=== PATIENT | female | born 1950 | race Hispanic/Latino ===

== ENCOUNTER → 2016-08-07 | Outpatient (CLI) | payer OTHER | LOC: MMPC 11:11 | PROVIDERS: ATTEND Surgery | DX: K64.5 Perianal venous thrombosis (principal) | CPT/HCPCS: 99212; G0463 ==

== ENCOUNTER → 2016-11-08 | Outpatient (CLI) | payer OTHER ==
--- NOTE | 2016-11-08 08:23 | DI ---
PA /LATERAL CHEST X-RAY, 11/08/2016 8:04 AM : Clinical History: Shortness of breath Previous Exam: None at this facility. There is no acute soft tissue or bony abnormality. Heart size is normal. Lungs are clear. Mediastinal structures are normal. There are no pulmonary nodules. IMPRESSION: Normal chest x-ray.
--- NOTE | 2016-11-08 08:59 | PE ---
[facility] Interpretive Statements [email or web address]
== END ==
LOC: RT 07:53
PROVIDERS: ATTEND Physician Assistant Medical
DX: R06.02 Shortness of breath (principal); R05 Cough
CPT/HCPCS: 71020; 94060

== ENCOUNTER → 2016-12-18 | Outpatient (CLI) | payer OTHER ==
[2016-12-18 13:04] LABS: BASOPHILS # (AUTO) 0.06 10*3/UL; BASOPHILS % (AUTO) 0.8 % (0-1); EOSINOPHILS # (AUTO) 0.07 10*3/UL; HEMATOCRIT 40.6 % (37.0-47.0); HEMOGLOBIN 13.9 g/dL (12.0-16.0); LYMPHOCYTES # (AUTO) 3.24 10*3/uL; MEAN CORPUSCULAR HEMOGLOBIN 29.4 PG (27-31); MEAN CORPUSCULAR HGB CONC 34.2 g/dL (33-37); MEAN CORPUSCULAR VOLUME 85.8 FL (81-99); MEAN PLATELET VOLUME 10.7 FL (7.4-12.2); MONOCYTES # (AUTO) 0.54 10*3/UL (0.3-0.8); MONOCYTES % (AUTO) 7.6 % (5-15); RED BLOOD COUNT 4.73 10^6/uL (4.20-5.40)
[2016-12-18 13:24] LABS: BLOOD UREA NITROGEN 16 mg/dL (7-22); BUN/CREATININE RATIO 26.66 (6-20); CALCIUM 9.5 mg/dL (8.7-10.7); EST GLOMERULAR FILTRATION > 60 (>60 ml/min/1.73m(2)); LIPASE 118 IU/L (23-300); SERUM ALBUMIN 4.4 g/dL (3.5-4.8)
[2016-12-18 13:25] LABS: PLATELET MORPHOLOGY COMMENT NORMAL MORPHOLOGY (NORM); RBC MORPHOLOGY COMMENT NORMAL MORPHOLOGY (NORM); WBC MORPHOLOGY COMMENT NORMAL MORPHOLOGY (NORM)
--- NOTE | 2016-12-19 00:40 | DI ---
CT ABD W/CN AND PELVIS W/CN,12/18/2016 2:04 PM: Clinical History: Abdominal pain and reflux. Previous Exam: January 30, 2016 Findings: Multiple helically acquired CT images are obtained through the abdomen and pelvis following intraveno us administration of contrast. Oral contrast was also administered. The lung bases are clear. There is stable fatty infiltration of the liver. Age and is status post cholecystectomy. The adrenals and kidneys are unremarkable. The spleen, pancreas, adrenals and kidneys are unremarkable. There is no mesenteric nor retroperitoneal lymphadenopathy. There is some thickening of the ascending colon which is not well evaluated on this exam. There is no evidence of acute appendicitis. Impression: 1. Mild thickening of the ascending colon. Consider colonoscopy for further evaluation.
== END ==
LOC: LAB 12:37
PROVIDERS: ATTEND Internal Medicine Gastroenterology
DX: R10.13 Epigastric pain (principal); K21.9 Gastro-esophageal reflux disease without esophagitis; K31.84 Gastroparesis; K59.00 Constipation, unspecified; I10 Essential (primary) hypertension; R10.813 Right lower quadrant abdominal tenderness; R07.81 Pleurodynia
CPT/HCPCS: 36415; 74177; 80053; 82150; 83690; 85025

== ENCOUNTER 2017-01-01 17:22 | Emergency (ER) | payer OTHER ==
[2017-01-01] MEDS ORDERED: MORPHINE SULFATE 4 MG/1 ML IVP ONE (18:01)
[2017-01-01] MEDS ORDERED: Sodium Chloride 0.9% 1,000 ML PRIMARY IV ONE (18:01)
[2017-01-01] MEDS ORDERED: ONDANSETRON 4 MG/2 ML VIAL IVP ONE (18:01)
--- NOTE | 2017-01-01 18:03 | PDOC ---
Abdomen/Flank HPI - General Chief Complaint: Abdomen Pain Stated Complaint: ABDOMINAL PAIN/RECTAL PAIN AND BLEEDING Date Seen by Provider: 01/01/17 Time Seen by Provider: 18:02 Source: POSITIVE: Patient Exam Limitations: POSITIVE: No limitations Nurse's Notes Reviewed & Considered: Yes - History of Present Illness Initial Comments: 66-year-old female comes in today with complaints of perirectal pain and rectal bleeding. Has a history of perirectal pain and hemorrhoids. She has been extensively examined including colonoscopy, EGD, and CT scans. All of which are equivocal. She describes her pain as crampy and severe. She has a sensation of needing to defecate, goes to the bathroom, and after a bowel movement continues to feel the need to defecate. She subsequently has no further stool. She denies any fever chills or sweats, no nausea vomiting or diarrhea, no hematuria or dysuria, no headache, no chest pain or shortness of breath, no cough. Body Location Affected: REPORTS: Abdomen, Genitalia Timing: REPORTS: Constant Duration: Unknown Severity: Severe Quality: REPORTS: "Pain", Pressure Abdominal Pain Onset Location: REPORTS: RLQ, LLQ, Suprapubic, Other (perineum) Abdominal Pain Radiation: REPORTS: Groin Context: REPORTS: Lifting Modifying Factors: improves with: Nothing Associated Symptoms: REPORTS: Constipation, Diarrhea Similar Symptoms Previously: Yes Recent Care Received: REPORTS: Recently Seen, Treated by MD Any Prior Injuries Related to Current Complaint?: No - Patient Home Medications Home Medications: Home Medications Hydrocortisone Acetate [Proctocort] 30 mg RECTAL BID #30 supp 07/25/16 Hydrocortisone [Proctosol-Hc] 28.35 gm RECTAL BID tube 08/07/16 Polyethylene Glycol 3350 [Miralax] 17 gm PO DAILY 08/07/16 Verapamil HCl [Verapamil Er Pm] 100 mg PO DAILY cap 11/06/16 Albuterol Sulfate [Ventolin Hfa] 2 puff INH Q4-6H #1 inh 11/08/16 Dexlansoprazole [Dexilant] 60 mg PO DAILY 01/01/17 - Patient Allergies Allergies/Adverse Reactions: Allergies Allergy/AdvReac Type Severity Reaction Status Date / Time codeine Allergy Intermediate ITCHING Verified 01/01/17 17:39 mannitol [From Reclast] AdvReac Severe muscle Verified 01/01/17 17:39 pain severe headache n/v water for injection,sterile AdvReac Severe muscle Verified 01/01/17 17:39 [From Reclast] pain severe headache n/v zoledronic acid AdvReac Severe muscle Verified 01/01/17 17:39 [From Reclast] pain severe headache n/v Past Medical History - heen HEENT History: Cataracts, Hard of Hearing Cardiovascular History: Hypertension, Hyperlipidemia Respiratory History: Denies History Gastrointestinal History: GERD Additional Gastrointestinal History: HX OF REFLUX , NOT CURRENTLY. DYSPHAGIA/ CHANGE IN BM'S/ ABDOMINAL PAIN Genitourinary History: Denies History Endocrine History: Denies History Musculoskeletal History: Osteoporosis, TMJ Prosthesis or Implant: Yes (LEFT WRIST) Neurological History:  Additional Neurological History: VERTIGO Blood Disorders: Denies History Psychiatric History: Denies History History of Sexually Transmitted Diseases: No Cancer History: Denies History History of MDRO: No History of Other Communicable Diseases: No Alcohol Use: None Substance Use Type: None Previous Surgical History: Yes Type / Date of Surgery: CATARACT EXT/ BALDEMAR/ HEMORRHOID REPAIR/ HYST/ LEFT KNEE SCOPE/ LEFT RING FINGER TRIGGER RELEASE/ JAW SX (TMJ)/ COLONOSCOPY/ EGD/ORIF L WRIST Anesthesia Reactions: No Malignant Hyperthermia: No Significant Family History: Cancer, Hypertension ROS - Limitations ROS Limitations: No Limitations Constitution: REPORTS: Denies Symptoms Cardiovascular: REPORTS: Denies Cardiac Symptoms Respiratory: REPORTS: Denies Resp Symptoms Neurological: REPORTS: Denies Neuro Symptoms Gastrointestinal: REPORTS: Abdominal Pain, Constipation Endocrine: REPORTS: Denies Symptoms Musculoskeletal: REPORTS: Denies MS Symptoms Genitourinary: REPORTS: Discharge Eyes: REPORTS: Denies Symptoms ENT: REPORTS: Denies Symptoms Skin: REPORTS: Denies Skin Symptoms Lympathic: REPORTS: Denies Lympathic Symptoms Immunologic: POSITIVE: Denies Symptoms Psychiatric: POSITIVE: Denies Psych Symptoms Abdominal/Flank Pain PE - General Appearance General Appearance: POSITIVE: Alert, Cooperative, No Evidence of Trauma, Severe Distress - HEENT HEENT: POSITIVE: Head Inspection Nml, Eyes Inspection Nml, Ears Inspection Nml, Nose Inspection Nml, Oral/Dental Inspect. Nml, Pharynx Inspect. 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, Motor Normal, Sensation Normal, 5, 6 - Psychological Psychiatric: POSITIVE: Affect Appropriate, Mood Appropriate Abdomen Progress - Results Reviewed by me Xrays/CTs/US Reviewed by me: Yes Discussed with Radiologist: Yes Lab Results Reviewed: Yes Lab Results:: Laboratory Results 01/01/17 Range/Units 18:45 WBC 6.81 (4.8-10.8) 10^3/uL RBC 4.86 (4.20-5.40) 10^6/uL Hgb 14.5 (12.0-16.0) g/dL Hct 40.9 (37.0-47.0) % MCV 84.2 (81-99) FL MCH 29.8 (27-31) PG MCHC 35.5 (33-37) g/dL RDW Std Deviation 38.5 L (39-50) fL RDW Coeff of Maggie 12.8 (11.5-14.5) % Plt Count 250 (140-350) 10*3/uL MPV 10.3 (7.4-12.2) FL Immature Gran % (Auto) 0.1 (0-5) % Neut % (Auto) 59.8 (50-80) % Lymph % (Auto) 31.7 (10-50) % Vigo % (Auto) 6.8 (5-15) % Eos % (Auto) 0.7 (0-8) % Baso % (Auto) 0.9 (0-1) % Immature Gran # (Auto) 0.01 10*3/UL Neut # (Auto) 4.07 10*3/UL Lymph # (Auto) 2.16 10*3/uL Vigo # (Auto) 0.46 (0.3-0.8) 10*3/UL Eos # (Auto) 0.05 10*3/UL Baso # (Auto) 0.06 10*3/UL WBC Morphology Comment Normal morphology (NORM) Plt Morphology Comment Normal morphology (NORM) RBC Morph Comment Normal morphology (NORM) Sodium 140 (135-145) meq/L Potassium 4.0 (3.8-5.2) meq/L Chloride 105 (98-112) meq/L Carbon Dioxide 24 (23-33) meq/L Anion Gap 11 (5-20) BUN 14 (7-22) mg/dL Creatinine 0.6 (0.50-1.20) mg/dL Estimated GFR > 60 (>60 ml/min/1.73m(2)) BUN/Creatinine Ratio 23.33 H (6-20) Glucose 117 H (78-110) mg/dL Calculated Osmolality 291.0 (267-292) mOsm/kg Calcium 9.9 (8.7-10.7) mg/dL Magnesium 2.2 (1.6-2.4) mg/dL Total Bilirubin 0.4 (0.3-1.2) mg/dL AST 29 (8-39) IU/L ALT 49 (9-52) IU/L Alkaline Phosphatase 56 (38-126) IU/L C-Reactive Protein 0.8 (0.0-0.9) mg/dL Total Protein 7.3 (6.1-8.0) g/dL Albumin 4.7 (3.5-4.8) g/dL Globulin 2.7 (2.50-4.10) g/dL Albumin/Globulin Ratio 1.70 (1.3-2.0) mg/g - Patient's Progress Pain Medication Addressed: POSITIVE: Yes Re-examine Time: 20:40 Status: POSITIVE: Improved MDM / ED Course: Patient was examined, an IV started, blood drawn and sent to the lab for studies , CT scan of her abdomen was obtained. Findings: CBC, comprehensive metabolic panel, urinalysis, and CT scan of abdomen and pelvis are all unremarkable. Digital rectal exam shows no blood present, there is a jonathon of hemorrhoid tags present. Assessment: Tenesmus. Plan: Discharge home and follow-up with primary care physician. ER course: Patient received normal saline, morphine sulfate, Zofran, and Ativan. After she was administered Ativan her symptoms resolved. - Consult Counseled: POSITIVE: Patient, Family, RE: Lab Results, RE: Radiology Results, RE : DX, RE: Need for F/U Patient Care Time - Estimated PCT Patient Care Time (In Minutes): 45 Vital Signs - Recent Vital Signs Vital Signs: Vital Signs (Last 8 hours) Pulse Resp BP Pulse Ox 01/01/17 19:19 87 14 136/69 96 01/01/17 19:02 81 16 175/95 95 - VS Reviewed Vital Signs Reviewed: Yes Discharge Clinical Impression: Abdominal pain, Tenesmus Discharge Disposition: Discharged to Home Condition: Stable Patient Instructions Given at Discharge: Acute Abdominal Pain (ED), Rectal Pain (ED) Follow Up With: ALEX PARKER [Primary Care Provider] -
[2017-01-01 18:42] VITALS: TEMP 98.3
[2017-01-01 18:53] LABS: BASOPHILS # (AUTO) 0.06 10*3/UL; BASOPHILS % (AUTO) 0.9 % (0-1); EOSINOPHILS # (AUTO) 0.05 10*3/UL; EOSINOPHILS % (AUTO) 0.7 % (0-8); HEMATOCRIT 40.9 % (37.0-47.0); HEMOGLOBIN 14.5 g/dL (12.0-16.0); LYMPHOCYTES # (AUTO) 2.16 10*3/uL; MEAN CORPUSCULAR HEMOGLOBIN 29.8 PG (27-31); MEAN CORPUSCULAR HGB CONC 35.5 g/dL (33-37); MEAN CORPUSCULAR VOLUME 84.2 FL (81-99); MEAN PLATELET VOLUME 10.3 FL (7.4-12.2); MONOCYTES # (AUTO) 0.46 10*3/UL (0.3-0.8); MONOCYTES % (AUTO) 6.8 % (5-15); NEUTROPHILS # (AUTO) 4.07 10*3/UL; NEUTROPHILS % (AUTO) 59.8 % (50-80); RED BLOOD COUNT 4.86 10^6/uL (4.20-5.40)
[2017-01-01 18:54] LABS: PLATELET MORPHOLOGY COMMENT NORMAL MORPHOLOGY (NORM); RBC MORPHOLOGY COMMENT NORMAL MORPHOLOGY (NORM); WBC MORPHOLOGY COMMENT NORMAL MORPHOLOGY (NORM)
[2017-01-01 19:05] LABS: BLOOD UREA NITROGEN 14 mg/dL (7-22); BUN/CREATININE RATIO 23.33 (6-20); C-REACTIVE PROTEIN 0.8 mg/dL (0.0-0.9); CALCIUM 9.9 mg/dL (8.7-10.7); EST GLOMERULAR FILTRATION > 60 (>60 ml/min/1.73m(2)); MAGNESIUM 2.2 mg/dL (1.6-2.4); SERUM ALBUMIN 4.7 g/dL (3.5-4.8)
[2017-01-01 19:21] VITALS: RESP 14
--- NOTE | 2017-01-01 20:14 | DI ---
CT ABDOMEN SCAN WITH IV CONTRAST, 01/01/2017 6:01 PM : Clinical History: Perineal and abdominal pain. Previous Exam: 12/18/2016. Scans are performed from the lower lung bases through the liver and kidneys with IV contrast. 65 ml o f Isovue 300 was injected IV. No oral or rectal contrast was ordered. The lung bases are clear. The liver is normal. The patient is status post cholecystectomy and the com mon bile duct measures 6 mm. There is no abnormality of the spleen, pancreas, and adrenal glands. Bot h kidneys are normal in size, shape, position and contour. There is no hydronephrosis or hydroureter. No renal or ureteral calculi are present. There are no abnormal retrocrural or periaortic nodes. No ascites is present. READING: Normal CT abdomen scan. CT PELVIS SCAN WITH IV CONTRAST, 01/01/2017 6:01 PM: Clinical History: See above. Previous Exam: 12/18/2016. Scans are performed from just superior to the umbilicus to the symphysis pubis with IV contrast. This is the same bolus of contrast used for the CT scans of the abdomen. Scans through the lower abdomen and pelvis show no masses or abnormal fluid collections. There is no adenopathy. The appendix is not visualized but there is no inflammatory mass either in the cecal tip or in the right lower quadrant. The small bowel, terminal ileum, and ileocecal valve are normal. In t he cecum just inferior to the ileocecal valve, there is a soft tissue density. Review of the previous CT scan shows that there was a similar but much smaller density. This probably is a collection of st ool, but if this patient has not had a colonoscopy at the recommended screening interval, then this s hould be followed up with a colonoscopy. There are no hernias. The patient is status post hysterectom y and bilateral salpingo-oophorectomy. READIN. No definite abnormality in the pelvis is noted. The appendix is not visualized but there is no in flammatory mass either in the cecal tip or in the right lower quadrant. 2. There is a soft tissue density in the cecum just inferior to the ileocecal valve. This was presen t on the previous study although it has a smaller appearance. It most likely represents stool. If thi s patient has not had a prior colonoscopy or a colonoscopy within the recommended time intervals, the n this area should be followed up with a colonoscopy.
[2017-01-01] MEDS ORDERED: LORazepam 2 MG/1 ML VIAL IVP ONE (20:20)
== END 2017-01-01 21:50 | disposition home or self-care (01) ==
LOC: ER 17:22
DX: R19.8 Other specified symptoms and signs involving the digestive system and abdomen (principal); K62.89 Other specified diseases of anus and rectum; R10.32 Left lower quadrant pain; R10.31 Right lower quadrant pain; K59.00 Constipation, unspecified; K62.5 Hemorrhage of anus and rectum
CPT/HCPCS: 74177; 80053; 83735; 85025; 86140; 96361; 96374; 96375; 99283 ×2; J2060; J2270; J2405; J7030